=== PATIENT | female | born 1990 | race Two or more races ===

== ENCOUNTER 2024-09-15 15:42 | Outpatient (AMB) | payer BC, SELFPAY ==
[2024-09-15 16:03] VITALS: BP 132/85; PULSE 93; RESP 18; TEMP 36.9; O2SAT 97; BMI 47.7
--- NOTE | 2024-09-15 16:03 | AMB.OBINITIA ---
Vital Signs 09/15/24 16:03 Height 1.7 m Height Method Stated Weight 138.346 kg Weight Measurement Method Standing Scale BMI 47.7 BP 132/85 H Blood Pressure Source Automatic Cuff Blood Pressure Location Left Upper Arm Position Sitting Respiration 18 Pulse 93 Pulse Source Monitor Temp 98.5 F Temp Source Oral Pulse Oximetry (%) 97 Oxygen Delivery Method Room Air Allergies/Home Meds Allergies & Medications Allergies Penicillins Allergy (Verified 09/15/24 16:05) Medication Reconciliation No Known Home Medications 09/15/24 [History Confirmed 09/15/24] Intake Visit Data Collection New Patient or Established: New Patient (never been to [facility]) Reason for Visit:: INITIAL CARE Seen by Clinical Staff ONLY (RN/MA): No Club Car Attendant Required: No Do You Feel Safe at Home: Yes Authorities Contacted: N/A PCP or OBGYN visit in last 3 months: No Hx Now: Yes Are you currently on any form of Control: No Last menstrual period: 07/10/24 Pain Present Currently: No Pain Scale Used: Cooper-Stone/Numerical Pain scale:: 0 Smoking Status Smoking Status: Never smoker Questionnaires Covid-19 Vaccine Questionnaire Has patient been vacinated for Covid-19 Have you been vacinated for Covid-19: Yes PHQ-9 PHQ-2 Over the last 2 weeks, how often have you been bothered by any of the following problems? 1. Little interest or pleasure in doing things: not at all 2. Feeling down, depressed, or hopeless: not at all Total score: 0 PHQ-9 3. Trouble falling or staying asleep, or sleeping too much: Not at all 4. Feeling tired or having little energy: Not at all 5. Poor appetite or overeating: Not at all 6. Feeling bad about yourself - or that you are a failure or have let yourself or your family down: Not at all 7. Trouble concentrating on things, such as reading the newspaper or watching television: Not at all 8. Moving or speaking so slowly that other people could have noticed? - Or the opposite - being so fidgety or restless that you have been moving around a lot more than usual: not at all 9. Thoughts that you would be better off or of hurting yourself in some way: Not at all Total score: 0 Source: Developed by Drs. Parviz Harrison, Edie Wong, Jalen Mckeon and colleagues, with an educational taj from [employer] Depression screen completed yes Social History Living Situation History Marital Status: Lives With: Family Housing: House Housing Other:: Patient works as a [employer]. 8 y/o son Tobacco History Smoking Status: Never smoker Second Hand Smoke Exposure: No Alcohol History Alcohol Intake: Never Domestic Abuse History Do You Feel Safe at Home: Yes History of Present Illness HPI Narrative The patient is a 33-year-old -0-2-1 with history of x 1 in August 2017 for arrest of dilatation. Patient stated she ruptured her membranes and was induced for over 24 hours and did not dilate. Her care was through [facility] in [place]. Her was with Dr. Reis. Her son weighed 8 pounds 11 ounces at 37 weeks. She stated she had uncomplicated and uncomplicated postop course. She then had to miscarriages both with D&Cs 1 in August 2022 and 1 in November 2022. One of them was a molar . I do not have any records. She has no significant past medical history. She is anxious today as she is afraid she has another miscarriage. She denies any cramping or vaginal bleeding this . OB Ultrasound Indication Indication: Size and dates OB Ultrasound Ultrasound technique: transvaginal Gestational sac assessment: Presence, location, size, shape: Live intrauterine with a crown-rump length of 3.38 cm corresponding to 10 weeks 2 days and an EDC of 04/12/2025. Cardiac activity noted at 170 bpm. SUPERVISOR [employer]UCATION: Past Medical History Additional Operations/Hospitalizations (year & reason): History of in 2018. D&C in August 2022 and November 2022 for miscarriages. One was a molar . Other Relevant History: No hypertension asthma or diabetes Starting maternal BMI of 48 OB Initial Visit Menstrual History Menstrual reliability: definite Flow: normal Menstrual regularity: regular Monthly: Yes Age at menarche: 12 On control pills at conception: No Associated symptoms (LMP): Reports nausea, fatigue and breast tenderness OB History : 4 Para: 1 Hx Total # of Abortions (Spontaneous & Elective): 2 # of Living Children: 1 Delivery History 1st : date: 08/26/17 sex: male Gestational age at delivery (weeks): 37 Delivery type: weight (lbs): 3940.584 g Delivery complications: none History of depression before or after : No Additional comments: Patient rupture membranes. Attempted induction for greater than 24 hours. Arrest of dilation. Infection History & Risk Evaluation History of STDs: none Genetic Screening & History Genetic Screening/Teratology Counseling - Includes patient, baby's father, or anyone in either family with: 1. Patient's age 35 years or older as of estimated date of delivery: No 2. Thalassemia (Sinhala, Romanian, Mediterranean, or Background); MCV less than 80: No 3. Neural Tube Defect (Meningomyelocele, Spina Bifida, or Anencephaly): No 4. Congenital Heart Defect: No 5. Down Syndrome: No 6. Cameron-Sachs (Ashkenazi Nondenominational, Cajun, Mauritanian [place]): No 7. Félix Disease (Ashkenazi Nondenominational): No 8. Familial Dysautonomia (Ashkenazi Nondenominational): No 9. Sickle Cell Disease or Trait (): No 10. Hemophilia or other blood disorders: No 11. Muscular Dystrophy: No 12. Cystic Fibrosis: No 13. Charlton's Chorea: No 14. Mental Retardation/Autism: No 15. Other inherited genetic or chromosomal disorder: No 16. Maternal Metabolic Disorder (EG,TYPE 1 Diabetes, PKU): No 17. Patient or baby's father had a child with defects not listed above: No 18. Recurrent loss or a stillbirth: No 19. Medications (including supplements, vitamins, herbs or otc drugs)/illicit/recreational drugs/alcohol since last menstrual period: No 20. Any other: No Infection History 1. Live with someone with TB or exposed to TB: No 2. Rash or viral illness since last menstrual period: No 3. Hepatitis B,C: No Other (see comments) Source: [employer] Review of Systems Constitutional Constitutional: Reports fatigue Gastrointestinal Gastrointestinal: Reports nausea Endocrine Endocrine: Reports fatigue Exam General Limitations: no limitations General Appearance: alert, in no apparent distress, comfortable, cooperative, healthy appearing, well groomed and obese Neck Neck exam: Present normal inspection, full ROM and trachea midline Chest Chest inspection: Present normal inspection and symmetric chest wall rise Resp Respiratory exam: Present normal lung sounds bilaterally Card Cardiovascular exam: Present regular rate, normal rhythm and normal heart sounds Abdominal Abdominal exam: Present soft and normal bowel sounds External exam: Present normal external exam Bimanual exam: Present normal bimanual exam Extremities Extremities exam: Present normal inspection and full ROM Back Back exam: Present normal inspection and full ROM Psych Psychiatric exam: Present normal affect and normal mood Skin Skin exam: Present warm, dry, intact and normal color Office Procedures OB Clinic LOC & Office Proc's Nursing/Assessment Patient Status: Initial/New Patient OB Clinic Nursing Assessment: Medication Reconciliation, Update PMH in EMR and Vital Signs OB Clinic Coordination of Care: Complex Care and Chronic Disease 1-5, Consent,records obtained, informed consent, Education Simp Pt/Fam, Lab and Imaging orders, Results/Orders obtained and Staff clarify orders Special Needs: Heart tones New Patient Charge New Patient Point Assignment: [id number] New Patient Point Charge: MEDICAL OFFICE SCHEDULER Level 4 (5612-7002) Assessment & Plan Diagnosis / Problem List (1) : Status: Acute Qualifiers: Weeks of gestation: 10 weeks Qualified Code(s): Z3A.10 - 10 weeks gestation of Assessment and Plan: Labs ordered through [employer] through primary care and pending. Just drawn on Sunday. Patient does desire NIPT and this was ordered through [employer]. Official ultrasound ordered in [place] for dating. (2) Previous section: Status: Acute Assessment and Plan: For repeat at 39 weeks (3) Morbid obesity with BMI of 45.0-49.9, adult: Status: Acute Assessment and Plan: For level 2 ultrasound and patient to take baby aspirin.
== END 2024-09-15 16:38 | disposition home or self-care (01) ==
LOC: HODSOBC 15:42
PROVIDERS: PCP Family Medicine; Referring Provider Family Medicine; Supervising Provider Obstetrics & Gynecology; Visit Provider Obstetrics & Gynecology
DX: O09.291 Supervision of pregnancy with other poor reproductive or obstetric history, first trimester (principal); O34.219 Maternal care for unspecified type scar from previous cesarean delivery; O09.891 Supervision of other high risk pregnancies, first trimester; O99.211 Obesity complicating pregnancy, first trimester; E66.01 Morbid (severe) obesity due to excess calories; O09.A1 Supervision of pregnancy with history of molar pregnancy, first trimester; Z3A.10 10 weeks gestation of pregnancy
CPT/HCPCS: 99204; G0463

== ENCOUNTER 2024-10-13 15:30 | Outpatient (AMB) | payer BC, SELFPAY ==
[2024-10-13 15:49] VITALS: BP 113/77; PULSE 84; RESP 16; TEMP 36.7; O2SAT 97; BMI 47.7
--- NOTE | 2024-10-13 15:49 | OBCLNT_ITS ---
Vital Signs 10/13/24 15:49 Height 1.7 m Height Method Stated Weight 137.949 kg Weight Measurement Method Standing Scale BMI 47.7 BP 113/77 Blood Pressure Source Automatic Cuff Blood Pressure Location Left Upper Arm Position Sitting Respiration 16 Pulse 84 Pulse Source Monitor Temp 98.1 F Temp Source Oral Pulse Oximetry (%) 97 Oxygen Delivery Method Room Air Allergies/Home Meds Allergies & Medications Allergies Penicillins Allergy (Verified 10/13/24 15:50) Medication Reconciliation No Known Home Medications 09/15/24 [History Confirmed 10/13/24] Intake Visit Data Collection New Patient or Established: Established Patient (seen at [facility] within 3 years) Reason for Visit:: CARE Seen by Clinical Staff ONLY (RN/MA): No Rural Health Consultant Required: No Do You Feel Safe at Home: Yes Authorities Contacted: N/A PCP or OBGYN visit in last 3 months: Yes Hx Now: Yes Are you currently on any form of Control: No Pain Present Currently: No Pain Scale Used: Cooper-Stone/Numerical Pain scale:: 0 Smoking Status Smoking Status: Never smoker Questionnaires Covid-19 Vaccine Questionnaire Has patient been vacinated for Covid-19 Have you been vacinated for Covid-19: Yes PHQ-9 PHQ-2 Over the last 2 weeks, how often have you been bothered by any of the following problems? 1. Little interest or pleasure in doing things: not at all 2. Feeling down, depressed, or hopeless: not at all Total score: 0 PHQ-9 3. Trouble falling or staying asleep, or sleeping too much: Not at all 4. Feeling tired or having little energy: Not at all 5. Poor appetite or overeating: Not at all 6. Feeling bad about yourself - or that you are a failure or have let yourself or your family down: Not at all 7. Trouble concentrating on things, such as reading the newspaper or watching television: Not at all 8. Moving or speaking so slowly that other people could have noticed? - Or the opposite - being so fidgety or restless that you have been moving around a lot more than usual: not at all 9. Thoughts that you would be better off or of hurting yourself in some way: Not at all Total score: 0 Source: Developed by Edie OttW. Marvin, Jalen Mckeon and colleagues, with an educational taj from [employer]. Depression screen completed yes Social History Living Situation History Lives With: Family Housing: House Housing Other:: Patient works as a [employer]. 8 y/o son Tobacco History Smoking Status: Never smoker Second Hand Smoke Exposure: No Alcohol History Alcohol Intake: Never Domestic Abuse History Do You Feel Safe at Home: Yes History of Present Illness HPI Narrative The patient is a 34-year-old -0-2-1 presents for care. She is currently 13 weeks . She has a history of x 1 in the past. Care OB Visit Log OB Flowsheet Initial Weight: Not Recorded Date -?-?-?-?-?-?-?-?-?-?-?-?- EGA Weight BP Alb Glu CTX Pres Fundal ht FHR Mov Dilation Station Effacement Hx Notes Visit Note 09/15/24 -?-?-?-?-?-?-?-?-?-?-?-?- 10w 3d 138.346 kg 132/85 147 absent New OB visit Order NIPT, Level II Us and offical US in 2 weeks 10/13/24 -?-?-?-?-?-?-?-?-?-?-?-?- 14w 3d 137.949 kg 113/77 15 145 absent Had 13-week ultrasound with Dr. Brizuela Note for light d uty and no uniform. Has level [address] Brizuela. Had normal NIPT. Will have gender reveal. VANNA Calculator Estimated Delivery Date Method Current WG Current Estimate 04/10/25 Ultrasound #1 14w 3d Other Estimates 04/16/25 LMP (Certain) 13w 4d Specific Issue/Plans Maternal Morbid Obesity Starting maternal BMI of 48 Previous for repeat NIPT 46XX Had maternal- medicine consult at 13 weeks with ultrasound, return for 20- week level 2 ultrasound Notes Visit Date: 10/13/24 Last Updated by: Sepideh Covington (OB Clinic)MD labs reviewed and on chart from [email or web address]. Patient has a separate account. B+/antibody negative/rubella immune/RPR nonreactive/HIV negative/ hepatitis B surface antigen negative/Hep C-/GC negative. Chlamydia negative /NIPT 46XX./ Visit Date: 09/15/24 Last Updated by: Sepideh Covington (OB Clinic)MD Previous CS for repeat Office Procedures OB Clinic LOC & Office Proc's Nursing/Assessment Patient Status: Established Patient OB Clinic Nursing Assessment: Medication Reconciliation, Update PMH in EMR and Vital Signs OB Clinic Coordination of Care: Complex Care and Chronic Disease 1-5, Consent,records obtained, informed consent, Education Simp Pt/Fam, Lab and Imaging orders, Results/Orders obtained and Staff clarify orders Special Needs: Heart tones Established Patient Charge Established Patient Point Assignment: 135 Established Patient Point Charge: EP Level 4 (120-155) Assessment & Plan Diagnosis / Problem List (1) Morbid obesity with BMI of 45.0-49.9, adult: Status: Acute Plan: Baby aspirin (2) Previous section: Status: Acute Plan: For elective repeat at 38 weeks (3) : Status: Acute Qualifiers: Weeks of gestation: 13 weeks Qualified Code(s): Z3A.13 - 13 weeks gestation of
== END 2024-10-13 16:24 | disposition home or self-care (01) ==
LOC: HODSOBC 15:30
PROVIDERS: PCP Family Medicine; Referring Provider Family Medicine; Supervising Provider Obstetrics & Gynecology; Visit Provider Obstetrics & Gynecology
DX: O09.292 Supervision of pregnancy with other poor reproductive or obstetric history, second trimester (principal); O34.219 Maternal care for unspecified type scar from previous cesarean delivery; O09.892 Supervision of other high risk pregnancies, second trimester; E66.01 Morbid (severe) obesity due to excess calories; Z3A.14 14 weeks gestation of pregnancy; Z88.0 Allergy status to penicillin
CPT/HCPCS: 99214; G0463

== ENCOUNTER 2024-11-14 15:27 | Outpatient (AMB) | payer BC, SELFPAY ==
[2024-11-14 15:50] VITALS: BP 116/77; PULSE 92; RESP 18; TEMP 36.7; O2SAT 98; BMI 48.5
--- NOTE | 2024-11-14 15:50 | OBCLNT_ITS ---
Vital Signs 11/14/24 15:50 Height 1.7 m Height Method Stated Weight 140.33 kg Weight Measurement Method Standing Scale BMI 48.5 BP 116/77 Blood Pressure Source Automatic Cuff Blood Pressure Location Left Upper Arm Position Sitting Respiration 18 Pulse 92 Pulse Source Monitor Temp 98.0 F Temp Source Oral Pulse Oximetry (%) 98 Oxygen Delivery Method Room Air Allergies/Home Meds Allergies & Medications Allergies Penicillins Allergy (Verified 11/14/24 15:51) Medication Reconciliation No Known Home Medications 09/15/24 [History Confirmed 11/14/24] Intake Visit Data Collection New Patient or Established: Established Patient (seen at [facility] within 3 years) Reason for Visit:: CARE Seen by Clinical Staff ONLY (RN/MA): No Calcine Furnace Tender Required: No Do You Feel Safe at Home: Yes Authorities Contacted: N/A PCP or OBGYN visit in last 3 months: Yes Hx Now: Yes Are you currently on any form of Control: No Pain Present Currently: No Pain Scale Used: Cooper-Stone/Numerical Pain scale:: 0 Smoking Status Smoking Status: Never smoker Questionnaires Covid-19 Vaccine Questionnaire Has patient been vacinated for Covid-19 Have you been vacinated for Covid-19: Yes PHQ-9 PHQ-2 Over the last 2 weeks, how often have you been bothered by any of the following problems? 1. Little interest or pleasure in doing things: not at all 2. Feeling down, depressed, or hopeless: not at all Total score: 0 PHQ-9 3. Trouble falling or staying asleep, or sleeping too much: Not at all 4. Feeling tired or having little energy: Not at all 5. Poor appetite or overeating: Not at all 6. Feeling bad about yourself - or that you are a failure or have let yourself or your family down: Not at all 7. Trouble concentrating on things, such as reading the newspaper or watching television: Not at all 8. Moving or speaking so slowly that other people could have noticed? - Or the opposite - being so fidgety or restless that you have been moving around a lot more than usual: not at all 9. Thoughts that you would be better off or of hurting yourself in some way: Not at all Total score: 0 Source: Developed by Drs. Parviz LEdie Finney Kurt Kroenke and colleagues, with an educational taj from [employer]. Depression screen completed yes Social History Living Situation History Lives With: Family Housing: House Housing Other:: Patient works as a [employer]. 8 y/o son Tobacco History Smoking Status: Never smoker Second Hand Smoke Exposure: No Alcohol History Alcohol Intake: Never Domestic Abuse History Do You Feel Safe at Home: Yes Care OB Visit Log OB Flowsheet Initial Weight: Not Recorded Date -?-?-?-?-?-?-?-?-?-?-?-?- EGA Weight BP Alb Glu CTX Pres Fundal ht FHR Mov Dilation Station Effacement Hx Notes Visit Note 09/15/24 -?-?-?-?-?-?-?-?-?-?-?-?- 10w 3d 138.346 kg 132/85 147 absent New OB visit Order NIPT, Level II Us and offical US in 2 weeks 10/13/24 -?-?-?-?-?-?-?-?-?-?-?-?- 14w 3d 137.949 kg 113/77 15 145 absent Had 13-week ultrasound with Dr. Brizuela Note for light d uty and no uniform. Has level [address] Brizuela. Had normal NIPT. Will have gender reveal. 11/14/24 -?-?-?-?-?-?-?-?-?-?-?-?- 19w 0d 140.33 kg 116/77 20 137 absent Has Level II Scheduled with Dr Brizuela Go od FM, No LOF or VB VANNA Calculator Estimated Delivery Date Method Current WG Current Estimate 04/10/25 Ultrasound #1 19w 0d Other Estimates 04/16/25 LMP (Certain) 18w 1d Expected Delivery Route/Plan For repeat CS at 38 weeks due to BMI of 48 Specific Issue/Plans 34 y/o Has 8 y/o son Starting maternal BMI of 48 Previous for repeat NIPT 46XX Had maternal- medicine consult at 13 weeks with ultrasound, return for 20- week level 2 ultrasound Notes Visit Date: 11/14/24 Last Updated by: Sepideh Covington (OB Clinic)MD On light duty at work. Visit Date: 10/13/24 Last Updated by: Sepideh Covington (OB Clinic)MD labs reviewed and on chart from [employer]. Patient has a separate account. B+/antibody negative/rubella immune/RPR nonreactive/HIV negative/ hepatitis B surface antigen negative/Hep C-/GC negative. Chlamydia negative /NIPT 46XX./ Visit Date: 09/15/24 Last Updated by: Sepideh Covington (OB Clinic)MD Previous CS for repeat Office Procedures OB Clinic LOC & Office Proc's Nursing/Assessment Patient Status: Established Patient OB Clinic Nursing Assessment: Medication Reconciliation, Update PMH in EMR and Vital Signs OB Clinic Coordination of Care: Complex Care and Chronic Disease 1-5, Consent,records obtained, informed consent, Education Simp Pt/Fam, Lab and Imaging orders, Results/Orders obtained and Staff clarify orders Special Needs: Heart tones Established Patient Charge Established Patient Point Assignment: 135 Established Patient Point Charge: EP Level 4 (120-155) Assessment & Plan Diagnosis / Problem List (1) Morbid obesity with BMI of 45.0-49.9, adult: Status: Acute Plan: NSTs and BPP's starting at 36 weeks (2) Previous section: Status: Acute Plan: For repeat at 38-week (3) : Status: Acute Qualifiers: Weeks of gestation: 19 weeks Qualified Code(s): Z3A.19 - 19 weeks gestation of
== END 2024-11-14 16:49 | disposition home or self-care (01) ==
LOC: HODSOBC 15:27
PROVIDERS: Supervising Provider Obstetrics & Gynecology; Visit Provider Obstetrics & Gynecology
DX: O09.292 Supervision of pregnancy with other poor reproductive or obstetric history, second trimester (principal); O34.219 Maternal care for unspecified type scar from previous cesarean delivery; O09.891 Supervision of other high risk pregnancies, first trimester; O99.212 Obesity complicating pregnancy, second trimester; E66.01 Morbid (severe) obesity due to excess calories; Z3A.19 19 weeks gestation of pregnancy; Z88.0 Allergy status to penicillin
CPT/HCPCS: 99214; G0463

== ENCOUNTER 2024-12-12 15:32 | Outpatient (AMB) | payer BC, SELFPAY ==
[2024-12-12 15:37] VITALS: BP 126/82; PULSE 94; RESP 18; TEMP 36.7; O2SAT 97; BMI 48.5
--- NOTE | 2024-12-12 15:37 | OBCLNT_ITS ---
Vital Signs 12/12/24 15:37 Height 1.7 m Height Method Stated Weight 140.387 kg Weight Measurement Method Standing Scale BMI 48.5 BP 126/82 Blood Pressure Source Automatic Cuff Blood Pressure Location Left Upper Arm Position Sitting Respiration 18 Pulse 94 Pulse Source Monitor Temp 98.1 F Temp Source Oral Pulse Oximetry (%) 97 Oxygen Delivery Method Room Air Allergies/Home Meds Allergies & Medications Allergies Penicillins Allergy (Verified 12/12/24 15:51) Medication Reconciliation No Known Home Medications 09/15/24 [History Confirmed 12/12/24] Intake Visit Data Collection New Patient or Established: Established Patient (seen at [facility] within 3 years) Reason for Visit:: CARE Seen by Clinical Staff ONLY (RN/MA): No Tar Heater Required: No Do You Feel Safe at Home: Yes Authorities Contacted: N/A PCP or OBGYN visit in last 3 months: Yes Hx Now: Yes Are you currently on any form of Control: No Pain Present Currently: No Pain Scale Used: Cooper-Stone/Numerical Pain scale:: 0 Smoking Status Smoking Status: Never smoker Immunizations Flu Vaccine in the Last 12 Months: No Flu Vaccine Exclusion Criteria: No Exclusion Criteria Questionnaires Covid-19 Vaccine Questionnaire Has patient been vacinated for Covid-19 Have you been vacinated for Covid-19: Yes PHQ-9 PHQ-2 Over the last 2 weeks, how often have you been bothered by any of the following problems? 1. Little interest or pleasure in doing things: not at all 2. Feeling down, depressed, or hopeless: not at all Total score: 0 PHQ-9 3. Trouble falling or staying asleep, or sleeping too much: Not at all 4. Feeling tired or having little energy: Not at all 5. Poor appetite or overeating: Not at all 6. Feeling bad about yourself - or that you are a failure or have let yourself or your family down: Not at all 7. Trouble concentrating on things, such as reading the newspaper or watching television: Not at all 8. Moving or speaking so slowly that other people could have noticed? - Or the opposite - being so fidgety or restless that you have been moving around a lot more than usual: not at all 9. Thoughts that you would be better off or of hurting yourself in some way: Not at all Total score: 0 Source: Developed by Drs. Parviz Harrison, Edie Wong, Jalen Mckeon and colleagues, with an educational taj from [employer]. Depression screen completed yes Social History Living Situation History Lives With: Family Housing: House Housing Other:: Patient works as a [employer]. 8 y/o son Tobacco History Smoking Status: Never smoker Second Hand Smoke Exposure: No Alcohol History Alcohol Intake: Never Domestic Abuse History Do You Feel Safe at Home: Yes Care OB Visit Log OB Flowsheet Initial Weight: Not Recorded Date -?-?-?-?-?-?-?-?-?-?-?-?- EGA Weight BP Alb Glu CTX Pres Fundal ht FHR Mov Dilation Station Effacement Hx Notes Visit Note 09/15/24 -?-?-?-?-?-?-?-?-?-?-?-?- 10w 3d 138.346 kg 132/85 147 absent New OB visit Order NIPT, Level II Us and offical US in 2 weeks 10/13/24 -?-?-?-?-?-?-?-?-?-?-?-?- 14w 3d 137.949 kg 113/77 15 145 absent Had 13-week ultrasound with Dr. Brizuela Note for light d uty and no uniform. Has level [address] Brizuela. Had normal NIPT. Will have gender reveal. 11/14/24 -?-?-?-?-?-?-?-?-?-?-?-?- 19w 0d 140.33 kg 116/77 20 137 absent Has Level II Scheduled with Dr Brizuela Go od FM, No LOF or VB 12/12/24 -?-?-?-?-?-?-?-?-?-?-?-?- 23w 0d 140.387 kg 126/82 absent unknown 23 134 active Good FM. No LOF or VB Level II US Dr Soila colorado WNL from 11/27/24 VANNA Calculator Estimated Delivery Date Method Current WG Current Estimate 04/10/25 Ultrasound #1 23w 5d Other Estimates 04/16/25 LMP (Certain) 22w 6d Expected Delivery Route/Plan For repeat CS at 38 weeks due to BMI of 48 Desires BTL, papers signed 12/12/24 Specific Issue/Plans 34 y/o Has 8 y/o son Starting maternal BMI of 48 Previous for repeat NIPT 46XX Had maternal- medicine consult at 13 weeks with ultrasound, return for 20- week level 2 ultrasound Notes Visit Date: 12/12/24 Last Updated by: Sepideh Covington ([facility])MD Reviewed WNL Level II US Dr. Brizuela. EFW 372 gm.(84 % ile) EDC by US 04/15/25. Need repeat scan in 6 weeks to check some anatomy with Dr. Brizuela (scheduled) Desires BTL. Papers signed Ordered GCT Visit Date: 11/14/24 Last Updated by: Sepideh Covington ([facility])MD On light duty at work. Visit Date: 10/13/24 Last Updated by: Sepideh Covington ([facility])MD labs reviewed and on chart from [employer] Patient has a separate account. B+/antibody negative/rubella immune/RPR nonreactive/HIV negative/ hepatitis B surface antigen negative/Hep C-/GC negative. Chlamydia negative /NIPT 46XX./ Visit Date: 09/15/24 Last Updated by: Sepideh Covington ([facility])MD Previous CS for repeat Office Procedures OBC Clinic LOC & Office Proc's Nursing/Assessment Patient Status: Established Patient OB Clinic Nursing Assessment: Medication Reconciliation, Update PMH in EMR and Vital Signs OB Clinic Coordination of Care: Complex Care and Chronic Disease 1-5, Consent,records obtained, informed consent, Education Simp Pt/Fam, Lab and Imaging orders, Results/Orders obtained and Staff clarify orders Special Needs: Heart tones Established Patient Charge Established Patient Point Assignment: 135 Established Patient Point Charge: EP Level 4 (120-155) Assessment & Plan Diagnosis / Problem List (1) Morbid obesity with BMI of 45.0-49.9, adult: Status: Acute Plan: Will need NST/AFIs at 36 weeks (2) Previous section: Status: Acute Plan: Schedule at 38 weeks (3) : Status: Acute Qualifiers: Weeks of gestation: 28 weeks Qualified Code(s): Z3A.28 - 28 weeks gestation of Plan: For GCT
== END 2024-12-12 16:27 | disposition home or self-care (01) ==
LOC: HODSOBC 15:32
PROVIDERS: Supervising Provider Obstetrics & Gynecology; Visit Provider Obstetrics & Gynecology
DX: O09.292 Supervision of pregnancy with other poor reproductive or obstetric history, second trimester (principal); O34.219 Maternal care for unspecified type scar from previous cesarean delivery; O09.892 Supervision of other high risk pregnancies, second trimester; O99.212 Obesity complicating pregnancy, second trimester; E66.01 Morbid (severe) obesity due to excess calories; Z3A.23 23 weeks gestation of pregnancy
CPT/HCPCS: 99214; G0463

== ENCOUNTER 2025-01-14 15:17 | Outpatient (AMB) | payer BC, SELFPAY ==
[2025-01-14 15:27] VITALS: BP 121/86; PULSE 99; RESP 18; TEMP 36.2; O2SAT 98; BMI 48.2
--- NOTE | 2025-01-14 15:27 | OBCLNT_ITS ---
Vital Signs 01/14/25 15:27 Height 1.7 m Height Method Stated Weight 139.366 kg Weight Measurement Method Standing Scale BMI 48.2 BP 121/86 H Blood Pressure Source Automatic Cuff Blood Pressure Location Left Upper Arm Position Sitting Respiration 18 Pulse 99 Pulse Source Monitor Temp 97.2 F Temp Source Oral Pulse Oximetry (%) 98 Oxygen Delivery Method Room Air Allergies/Home Meds Allergies & Medications Allergies Penicillins Allergy (Verified 01/14/25 15:28) Medication Reconciliation No Known Home Medications 09/15/24 [History Confirmed 01/14/25] Immunizations Immunizations Flu Vaccine in the Last 12 Months: No Flu Vaccine Exclusion Criteria: Refused by Patient Care OB Visit Log OB Flowsheet Initial Weight: Not Recorded Date -?-?-?-?-?-?-?-?-?-?-?-?- EGA Weight BP Alb Glu CTX Pres Fundal ht FHR Mov Dilation Station Effacement Hx Notes Visit Note 09/15/24 -?-?-?-?-?-?-?-?-?-?-?-?- 10w 3d 138.346 kg 132/85 147 absent New OB visit Order NIPT, Level II Us and offical US in 2 weeks 10/13/24 -?-?-?-?-?-?-?-?-?-?-?-?- 14w 3d 137.949 kg 113/77 15 145 absent Had 13-week ultrasound with Dr. Brizuela Note for light d uty and no uniform. Has level [address] Brizuela. Had normal NIPT. Will have gender reveal. 11/14/24 -?-?-?-?-?-?-?-?-?-?-?-?- 19w 0d 140.33 kg 116/77 20 137 absent Has Level II Scheduled with Dr Brizuela Go od FM, No LOF or VB 12/12/24 -?-?-?-?-?-?-?-?-?-?-?-?- 23w 0d 140.387 kg 126/82 absent unknown 23 134 active Good FM. No LOF or VB Level II US Dr Soila colorado WNL from 11/27/24 01/14/25 -?-?-?-?-?-?-?-?-?-?-?-?- 27w 5d 139.366 kg 121/86 absent unknown 27 134 active Good movement. No LOF. No VB. No UC's. Discus sed labor precautions. Increase fluids. And patient return in 3 weeks for OB check VANNA Calculator Estimated Delivery Date Method Current WG Current Estimate 04/10/25 Ultrasound #1 27w 5d Other Estimates 04/16/25 LMP (Certain) 26w 6d 04/16/25 Ultrasound #2 26w 6d 04/10/25 Manual 27w 5d final vanna: 04/10, 01/09:IUP @26w1,EFW:82% Expected Delivery Route/Plan For repeat CS at 38 weeks due to BMI of 48 Desires BTL, papers signed 12/12/24 Specific Issue/Plans 34 y/o Has 8 y/o son Starting maternal BMI of 48 Previous for repeat NIPT 46XX Had maternal- medicine consult at 13 weeks with ultrasound, return for 20- week level 2 ultrasound Notes Visit Date: 01/14/25 Last Updated by: Anaya Mariscal CNM OB panel: B+,abs-, rpr;;nr, rub imm, hbsag-,hiv-,hc-, gc/ct-, 02/08, UA-, NIPT/carrier-, 1 hr gtt-,, T4 wnl Visit Date: 12/12/24 Last Updated by: Sepideh Covington ([facility])MD Reviewed WNL Level II US Dr. Brizuela. EFW 372 gm.(84 % ile) EDC by US 04/15/25. Need repeat scan in 6 weeks to check some anatomy with Dr. Brizuela (scheduled) Desires BTL. Papers signed Ordered GCT Visit Date: 11/14/24 Last Updated by: Sepideh Covington ([facility])MD On light duty at work. Visit Date: 10/13/24 Last Updated by: Sepideh Covington ([facility])MD labs reviewed and on chart from [employer]. Patient has a separate account. B+/antibody negative/rubella immune/RPR nonreactive/HIV negative/ hepatitis B surface antigen negative/Hep C-/GC negative. Chlamydia negative /NIPT 46XX./ Visit Date: 09/15/24 Last Updated by: Sepideh Covington ([facility])MD Previous CS for repeat Office Procedures OBC Clinic LOC & Office Proc's Nursing/Assessment Patient Status: Established Patient OB Clinic Nursing Assessment: Medication Reconciliation, Update PMH in EMR and Vital Signs OB Clinic Coordination of Care: Consent,records obtained, informed consent, Education Simp Pt/Fam, Lab and Imaging orders, Results/Orders obtained and Staff clarify orders Special Needs: Heart tones Established Patient Charge Established Patient Point Assignment: 110 Established Patient Point Charge: EP Level 3 (80-115) Assessment & Plan Diagnosis / Problem List (1) Previous section: Status: Acute (2) Morbid obesity with BMI of 45.0-49.9, adult: Status: Acute (3) Encounter for supervision of high risk in second trimester, antepartum: Status: Acute Plan Return in 3 weeks OB check. Continue to monitor for labor. Discussed danger signs and symptoms. Increase fluids. Continue vitamins Additional Plan Follow Up: 3 Weeks (obc)
== END 2025-01-14 15:51 | disposition home or self-care (01) ==
PROVIDERS: Supervising Provider Advanced Practice Midwife; Visit Provider Advanced Practice Midwife
DX: O09.292 Supervision of pregnancy with other poor reproductive or obstetric history, second trimester (principal); O34.219 Maternal care for unspecified type scar from previous cesarean delivery; O09.892 Supervision of other high risk pregnancies, second trimester; O99.212 Obesity complicating pregnancy, second trimester; E66.01 Morbid (severe) obesity due to excess calories; Z3A.27 27 weeks gestation of pregnancy; Z88.0 Allergy status to penicillin
CPT/HCPCS: 99213; G0463

== ENCOUNTER 2025-02-04 14:57 | Outpatient (AMB) | payer BC, SELFPAY ==
[2025-02-04 15:12] VITALS: BP 128/85; PULSE 89; RESP 18; TEMP 36.8; O2SAT 98; BMI 48.2
--- NOTE | 2025-02-04 15:12 | OBCLNT_ITS ---
Vital Signs 02/04/25 15:12 Height 1.7 m Height Method Stated Weight 139.31 kg Weight Measurement Method Standing Scale BMI 48.2 BP 128/85 H Blood Pressure Source Automatic Cuff Blood Pressure Location Left Upper Arm Position Sitting Respiration 18 Pulse 89 Pulse Source Monitor Temp 98.2 F Temp Source Oral Pulse Oximetry (%) 98 Oxygen Delivery Method Room Air Allergies/Home Meds Allergies & Medications Allergies Penicillins Allergy (Verified 02/04/25 15:14) Medication Reconciliation No Known Home Medications 09/15/24 [History Confirmed 02/04/25] Immunizations Immunizations Flu Vaccine in the Last 12 Months: No Flu Vaccine Exclusion Criteria: No Exclusion Criteria Care OB Visit Log OB Flowsheet Initial Weight: Not Recorded Date -?-?-?-?-?-?-?-?-?-?-?-?- EGA Weight BP Alb Glu CTX Pres Fundal ht FHR Mov Dilation Station Effacement Hx Notes Visit Note 09/15/24 -?-?-?-?-?-?-?-?-?-?-?-?- 10w 3d 138.346 kg 132/85 147 absent New OB visit Order NIPT, Level II Us and offical US in 2 weeks 10/13/24 -?-?-?-?-?-?-?-?-?-?-?-?- 14w 3d 137.949 kg 113/77 15 145 absent Had 13-week ultrasound with Dr. Brizuela Note for light d uty and no uniform. Has level [address] Brizuela. Had normal NIPT. Will have gender reveal. 11/14/24 -?-?-?-?-?-?-?-?-?-?-?-?- 19w 0d 140.33 kg 116/77 20 137 absent Has Level II Scheduled with Dr Brizuela Go od FM, No LOF or VB 12/12/24 -?-?-?-?-?-?-?-?-?-?-?-?- 23w 0d 140.387 kg 126/82 absent unknown 23 134 active Good FM. No LOF or VB Level II US Dr Soila colorado WNL from 11/27/24 01/14/25 -?-?-?-?-?-?-?-?-?-?-?-?- 27w 5d 139.366 kg 121/86 absent unknown 27 134 active Good movement. No LOF. No VB. No UC's. Discus sed labor precautions. Increase fluids. And patient return in 3 weeks for OB check 02/04/25 -?-?-?-?-?-?-?-?-?-?-?-?- 30w 5d 139.31 kg 128/85 absent cephalic 30 135 active Good movement. Denies labor precautions. Complains of increased back and sciatic pain at work. Patient sits all day D isability next visit. I scheduled patient with OB provider to schedule because patient's a repeat. Discussed labor precautions and Tdap today VANNA Calculator Estimated Delivery Date Method Current WG Current Estimate 04/10/25 Ultrasound #1 30w 5d Other Estimates 04/16/25 LMP (Certain) 29w 6d 04/16/25 Ultrasound #2 29w 6d 04/10/25 Manual 30w 5d final vanna: 04/10, 01/09:IUP @26w1,EFW:82% Expected Delivery Route/Plan For repeat CS at 38 weeks due to BMI of 48 Desires BTL, papers signed 12/12/24 Specific Issue/Plans 34 y/o Has 8 y/o son Starting maternal BMI of 48 Previous for repeat NIPT 46XX Had maternal- medicine consult at 13 weeks with ultrasound, return for 20- week level 2 ultrasound Notes Visit Date: 02/04/25 Last Updated by: Anaya Mariscal CNM sono: 01/09/25: EFW: 82%, 26w1: EDC 04/16/25 Visit Date: 01/14/25 Last Updated by: Anaya Mariscal CNM OB panel: B+,abs-, rpr;;nr, rub imm, hbsag-,hiv-,hc-, gc/ct-, 02/08, UA-, NIPT/carrier-, 1 hr gtt-,, T4 wnl Visit Date: 12/12/24 Last Updated by: Sepideh Covington ([facility])MD Reviewed WNL Level II US Dr. Brizuela. EFW 372 gm.(84 % ile) EDC by US 04/15/25. Need repeat scan in 6 weeks to check some anatomy with Dr. Brizuela (scheduled) Desires BTL. Papers signed Ordered GCT Visit Date: 11/14/24 Last Updated by: Sepideh Covington ([facility])MD On light duty at work. Visit Date: 10/13/24 Last Updated by: Sepideh Covington ([facility])MD labs reviewed and on chart from [employer]. Patient has a separate account. B+/antibody negative/rubella immune/RPR nonreactive/HIV negative/ hepatitis B surface antigen negative/Hep C-/GC negative. Chlamydia negative /NIPT 46XX./ Visit Date: 09/15/24 Last Updated by: Sepideh Covington ([facility])MD Previous CS for repeat Office Procedures OBC Clinic LOC & Office Proc's Nursing/Assessment Patient Status: Established Patient OB Clinic Nursing Assessment: Medication Reconciliation, Update PMH in EMR and Vital Signs OB Clinic Coordination of Care: Consent,records obtained, informed consent, Education Simp Pt/Fam, Lab and Imaging orders, Results/Orders obtained and Staff clarify orders Special Needs: Heart tones Established Patient Charge Established Patient Point Assignment: 110 Established Patient Point Charge: EP Level 3 (80-115) Immunizations diphth,pertus(acell),tetanus 2.5 Lf unit-8 mcg-5 Lf/0.5mL IM syringe Performing Provider: Anaya Mariscal CNM Performing Location: [facility] Administered by: Nicki Acevedo MA on 02/04/25 16:03 Dose Route Admin Location Dispensed Lot Number Expiration Date Pack age [facility] [employer] 0.5 mL IM Right Deltoid 0.5 mL [id number] 05/23/27 97157-369-97 [id number] [employer] VIS Given Date VIS Provided VIS Publication Date 02/04/25 Single Vaccine 24 Eligibility Eligibility Date Funding Source Public Non-[facility] Assessment & Plan Diagnosis / Problem List (1) Encounter for supervision of high risk in second trimester, antepartum: Status: Acute Plan Tdap vaccine today. Patient got the flu vaccine at work. Discussed labor precautions. And schedule patient with OB to schedule . Additional Plan Follow Up: 2 Weeks (obc)
== END 2025-02-04 15:38 | disposition home or self-care (01) ==
LOC: HODSOBC 14:57
PROVIDERS: Supervising Provider Advanced Practice Midwife; Visit Provider Advanced Practice Midwife
DX: O09.293 Supervision of pregnancy with other poor reproductive or obstetric history, third trimester (principal); O34.219 Maternal care for unspecified type scar from previous cesarean delivery; Z3A.30 30 weeks gestation of pregnancy; Z23 Encounter for immunization
CPT/HCPCS: 90471; 90656; 90686; 90715; 99213; G0463; J9060

== ENCOUNTER 2025-02-25 12:57 | Outpatient (AMB) | payer BC, SELFPAY ==
[2025-02-25 13:04] VITALS: BP 126/83; PULSE 91; RESP 18; TEMP 36.4; O2SAT 98; BMI 48.2
--- NOTE | 2025-02-25 13:04 | OBCLNT_ITS ---
Vital Signs 02/25/25 13:04 Height 1.7 m Height Method Stated Weight 139.253 kg Weight Measurement Method Standing Scale BMI 48.2 BP 126/83 Blood Pressure Source Automatic Cuff Blood Pressure Location Left Upper Arm Position Sitting Respiration 18 Pulse 91 Pulse Source Monitor Temp 97.5 F Temp Source Oral Pulse Oximetry (%) 98 Oxygen Delivery Method Room Air Allergies/Home Meds Allergies & Medications Allergies Penicillins Allergy (Verified 02/25/25 13:11) Medication Reconciliation vitamin-ferrous fumarate 40 mg iron-folic acid 1 mg tablet tab PO 02/25/25 [History Confirmed 02/25/25] Immunizations Immunizations Flu Vaccine in the Last 12 Months: Yes Flu Vaccine Exclusion Criteria: Already Received Care OB Visit Log OB Flowsheet Initial Weight: Not Recorded Date -?-?-?-?-?-?-?-?-?-?-?-?- EGA Weight BP Alb Glu CTX Pres Fundal ht FHR Mov Dilation Station Effacement Hx Notes Visit Note 09/15/24 -?--?-?-?-?-?-?-?-?-?-?-?- 10w 3d 138.346 kg 132/85 147 absent New OB visit Order NIPT, Level II Us and offical US in 2 weeks 10/13/24 -?-?-?-?--?-?-?-?-?-?-?-?- 14w 3d 137.949 kg 113/77 15 145 absent Had 13-week ultrasound with Dr. Brizuela Note for light d uty and no uniform. Has level [address] Brizuela. Had normal NIPT. Will have gender reveal. 11/14/24 -?-?-?-?-?-?-?-?-?-?-?-?- 19w 0d 140.33 kg 116/77 20 137 absent Has Level II Scheduled with Dr Brizuela Go od FM, No LOF or VB 12/12/24 -?-?-?-?-?-?-?-?-?-?-?-?- 23w 0d 140.387 kg 126/82 absent unknown 23 134 active Good FM. No LOF or VB Level II US Dr Soila colorado WNL from 11/27/24 01/14/25 -?-?-?-?-?-?-?-?-?-?-?-?- 27w 5d 139.366 kg 121/86 absent unknown 27 134 active Good movement. No LOF. No VB. No UC's. Discus sed labor precautions. Increase fluids. And patient return in 3 weeks for OB check 02/04/25 -?-?-?-?-?-?-?-?-?-?-?-?- 30w 5d 139.31 kg 128/85 absent cephalic 30 135 active Good movement. Denies labor precautions. Complains of increased back and sciatic pain at work. Patient sits all day D isability next visit. I scheduled patient with OB provider to schedule because patient's a repeat. Discussed labor precautions and Tdap today 02/25/25 -?-?-?-?-?-?-?-?-?-?-?-?- 33w 5d 139.253 kg 126/83 occasional cephalic 34 130 active VANNA Calculator Estimated Delivery Date Method Current WG Current Estimate 04/10/25 Ultrasound #1 33w 5d Other Estimates 04/16/25 LMP (Certain) 32w 6d 04/16/25 Ultrasound #2 32w 6d 04/10/25 Manual 33w 5d final vanna: 04/10, 01/09:IUP @26w1,EFW:82% Expected Delivery Route/Plan For repeat CS at 38 weeks due to BMI of 48 Desires BTL, papers signed 12/12/24 Specific Issue/Plans 34 y/o Has 8 y/o son Starting maternal BMI of 48 Previous for repeat NIPT 46XX Had maternal- medicine consult at 13 weeks with ultrasound, return for 20- week level 2 ultrasound Notes Visit Date: 02/25/25 Last Updated by: Mercedez Esparza MD previous C section at 33.5 weeks / desires BTL also / consent signed and patient has a copy in her wallet / and one molar needing D&C x 2 in second / would like to go on disability at 36 weeks / Has MFM US today / Plan repeat LTCS and BTL at 39 weeks / labor precautions / follow up in 2 weeks/ EDC 04/10/2025 on 04/03/2025 or later Visit Date: 02/04/25 Last Updated by: Anaya Mariscal CNM sono: 01/09/25: EFW: 82%, 26w1: EDC 04/16/25 Visit Date: 01/14/25 Last Updated by: Anaya Mariscal CNM OB panel: B+,abs-, rpr;;nr, rub imm, hbsag-,hiv-,hc-, gc/ct-, 02/08, UA-, NIPT/carrier-, 1 hr gtt-,, T4 wnl Visit Date: 12/12/24 Last Updated by: Sepideh Covington ([facility])MD Reviewed WNL Level II US Dr. Brizuela. EFW 372 gm.(84 % ile) EDC by US 04/15/25. Need repeat scan in 6 weeks to check some anatomy with Dr. Brizuela (scheduled) Desires BTL. Papers signed Ordered GCT Visit Date: 11/14/24 Last Updated by: Sepideh Covington ([facility] Clinic)MD On light duty at work. Visit Date: 10/13/24 Last Updated by: Sepideh [facility])MD labs reviewed and on chart from [email or web address]. Patient has a separate account. B+/antibody negative/rubella immune/RPR nonreactive/HIV negative/ hepatitis B surface antigen negative/Hep C-/GC negative. Chlamydia negative /NIPT 46XX./ Visit Date: 09/15/24 Last Updated by: Sepideh [facility])MD Previous CS for repeat Office Procedures OBC Clinic LOC & Office Proc's Nursing/Assessment Patient Status: Established Patient OB Clinic Nursing Assessment: Medication Reconciliation, Update PMH in EMR and Vital Signs OB Clinic Coordination of Care: Complex Care and Chronic Disease 1-5, Consent,records obtained, informed consent, Education Simp Pt/Fam, Lab and Imaging orders, Results/Orders obtained and Staff clarify orders Special Needs: Heart tones Established Patient Charge Established Patient Point Assignment: 135 Established Patient Point Charge: EP Level 4 (120-155) Assessment & Plan Diagnosis / Problem List (1) Encounter for supervision of high risk in second trimester, antepartum: Status: Acute (2) Morbid obesity with BMI of 45.0-49.9, adult: Status: Acute (3) Previous section: Status: Acute Assessment and Plan: previous C section at 33.5 weeks / desires BTL also / consent signed and patient has a copy in her wallet / and one molar needing D&C x 2 in second / would like to go on disability at 36 weeks / Has MFM US today / Plan repeat LTCS and BTL at 39 weeks / labor precautions / follow up in 2 weeks/ EDC 04/10/2025 on 04/03/2025 or later
== END 2025-02-25 13:24 | disposition home or self-care (01) ==
PROVIDERS: Supervising Provider Advanced Practice Midwife; Visit Provider Obstetrics & Gynecology
DX: O09.293 Supervision of pregnancy with other poor reproductive or obstetric history, third trimester (principal); O34.211 Maternal care for low transverse scar from previous cesarean delivery; O09.893 Supervision of other high risk pregnancies, third trimester; O99.213 Obesity complicating pregnancy, third trimester; E66.01 Morbid (severe) obesity due to excess calories; Z3A.30 30 weeks gestation of pregnancy; Z88.0 Allergy status to penicillin
CPT/HCPCS: 99214; G0463